=== PATIENT | male | born 1990 | race Caucasian/White ===

== ENCOUNTER 2022-08-28 19:15 | Emergency (ER) | payer OTHER ==
[~2022-08-28] VITALS: Ht 177.8 cm; Wt 100.9 kg
[2022-08-28] MEDS ORDERED: FAMO40TA3 PO (19:26)
[2022-08-28] MEDS ORDERED: NORT50CA PO (19:26)
[2022-08-28] MEDS ORDERED: METH-1164 PO (19:26)
[2022-08-28] MEDS ORDERED: GABA-282 PO (19:26)
[2022-08-28] MEDS ORDERED: VITMTA PO (19:26)
[2022-08-28] MEDS ORDERED: METO1TAB32 PO (19:26)
[2022-08-28] MEDS ORDERED: CRES40TA PO (19:26)
[2022-08-28 19:50] LABS: BASO % 0.3 % (0.0-1.0); EOS # 0.1 10^3/uL (0.0-0.5); EOS % 1.2 % (0.0-3.0); HEMOGLOBIN 16.1 g/dl (13.5-17.5); LYMPH # 1.3 10^3/uL (1.5-5.0); LYMPH % 12.3 % (24.0-44.0); MEAN CORPUSCULAR HEMOGLOBIN 30.6 pg (27.0-33.0); MEAN CORPUSCULAR HGB CONC 35.8 g/dl (32.0-36.5); MEAN CORPUSCULAR VOLUME 85.4 fl (80.0-96.0); MONO # 1.3 10^3/uL (0.0-0.8); MONO % 12.8 % (2.0-8.0); NEUTROPHILS # 7.7 10^3/uL (1.5-8.5); NEUTROPHILS % 73.3 % (36.0-66.0); PLATELET COUNT, AUTOMATED 163 10^3/uL (150-450); RED BLOOD COUNT 5.27 10^6/uL (4.30-6.10); WHITE BLOOD COUNT 10.5 10^3/uL (4.0-10.0)
[2022-08-28 20:29] LABS: ALBUMIN 3.8 GM/DL (3.2-5.2); ALT/SGPT 43 U/L (12-78); BILIRUBIN,DIRECT 0.2 MG/DL (0.0-0.2); BILIRUBIN,TOTAL 0.4 MG/DL (0.2-1.0); BLOOD UREA NITROGEN 12 MG/DL (7-18); CALCIUM LEVEL 8.6 MG/DL (8.5-10.1); CARBON DIOXIDE LEVEL 24 MEQ/L (21-32); CHLORIDE LEVEL 103 MEQ/L (98-107); CREATININE FOR GFR 1.05 MG/DL (0.70-1.30); GLOMERULAR FILTRATION RATE > 60.0 (>60); GLUCOSE, FASTING 114 MG/DL (70-100); LIPASE 203 U/L (73-393); POTASSIUM SERUM 3.8 MEQ/L (3.5-5.1); SODIUM LEVEL 133 MEQ/L (136-145)
[2022-08-29] MEDS ORDERED: NS 1,000 ML IV ONE ×2 (00:30→02:10)
[2022-08-29] MEDS ORDERED: ONDANSETRON 4MG 2ML VIAL IV ONE (00:30)
[2022-08-29] MEDS ORDERED: ISOVUE-370 76% 100ML VIAL As Ordered ONE (01:06)
[2022-08-29] MEDS ORDERED: KETOROLAC 30 MG/ML 1ML VIAL IV ONE (02:10)
[2022-08-29] MEDS ORDERED: ONDA4TAB6 PO (02:31)
[2022-08-29 03:30] VITALS: BP 119/60
== END 2022-08-29 03:33 | disposition home or self-care (01) ==
LOC: M ED 19:15
DX: A07.2 Cryptosporidiosis (principal); R11.2 Nausea with vomiting, unspecified; K42.9 Umbilical hernia without obstruction or gangrene; I10 Essential (primary) hypertension; E78.5 Hyperlipidemia, unspecified; K21.9 Gastro-esophageal reflux disease without esophagitis; F17.200 Nicotine dependence, unspecified, uncomplicated; Z79.899 Other long term (current) drug therapy
CPT/HCPCS: 74177; 80048; 80076; 83690; 85025; 87507; 96374; 96375; 99283; J1885; J2405; Q9967

== ENCOUNTER 2024-08-18 09:41 | Emergency (ER) | payer OTHER ==
[~2024-08-18] VITALS: Ht 177.8 cm; Wt 102.3 kg
[~2024-08-18 09:41] MED LIST: CRES40TA PO; FAMO40TA3 PO; GABA-1172 PO; METH-1164 PO; METO1TAB32 PO; NORT50CA PO; ONDA-282 PO; VITMTA PO
[2024-08-18] MEDS: IBUPROFEN 600MG TAB PO ONE (10:17)
[2024-08-18 11:02] VITALS: BP 133/65; TEMP 98.6; O2SAT 98
== END 2024-08-18 11:09 | disposition home or self-care (01) ==
LOC: M ED 09:41
DX: S99.911A Unspecified injury of right ankle, initial encounter (principal); Y92.9 Unspecified place or not applicable; Y93.9 Activity, unspecified; Y99.9 Unspecified external cause status; I10 Essential (primary) hypertension; E78.5 Hyperlipidemia, unspecified; F17.210 Nicotine dependence, cigarettes, uncomplicated; Z79.899 Other long term (current) drug therapy